=== PATIENT | female | born 1950 | race Two or more races ===

== ENCOUNTER 2021-12-01 11:24 | Outpatient (CLI) | payer OTHER | END 2021-12-01 11:30 | disposition home or self-care (01) | LOC: SONOGRAMA 11:24 | PROVIDERS: ATTEND Pathology Anatomic Pathology & Clinical Pathology | DX: E04.2 Nontoxic multinodular goiter (principal) ==

== ENCOUNTER 2024-06-23 07:02 | Outpatient (CLI) | payer OTHER | END 2024-06-23 07:08 | disposition home or self-care (01) | LOC: TOM 07:02 | DX: K63.5 Polyp of colon (principal) ==